=== PATIENT | male | born 1950 | race Caucasian/White ===

== ENCOUNTER → 2017-01-10 | Outpatient (CLI) | payer OTHER ==
[~2017-01-10] MED LIST: AMLO2.5T PO; BACLOF10P IT; CIPR-9 PO; CYMB60CA PO; DIAZ5 PO; DICL1GEL TOPICAL; LAMO200T PO; LEVE500 PO; PRED1SUS RIGHT EYE; TAMS5CAP PO
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
== END ==
LOC: HRAD 14:05
PROVIDERS: ATTEND Urology
DX: N31.9 Neuromuscular dysfunction of bladder, unspecified (principal)
CPT/HCPCS: 76775

== ENCOUNTER 2017-09-17 10:44 | Observation (INO) | payer OTHER ==
[~2017-09-17] VITALS: Ht 195.6 cm; Wt 125.0 kg
[~2017-09-17 10:44] MED LIST changes: -CIPR-9 PO; +COLA100C PO; +CRANCAP2 PO; -DICL1GEL TOPICAL; +MIRA3350 PO; +MULT-65 PO; -PRED1SUS RIGHT EYE; +RANI150T PO; +VOLT1GEL4 TOPICAL
[2017-09-17] MEDS ORDERED: COLA100C PO (11:36)
[2017-09-17] MEDS ORDERED: AMLO2.5T PO (11:36)
[2017-09-17] MEDS ORDERED: CHLORHEXIDINE GLUCONATE 2 % 1 PACK (2 CLOTHS) TOPICAL PRN (12:00)
[2017-09-17] MEDS ORDERED: LACTATED RINGER'S 1000 ML IV PRN (12:00)
[2017-09-17] MEDS ORDERED: METOPROLOL TARTRATE 25 MG TAB PO PRN (12:00)
[2017-09-17] MEDS ORDERED: ePHEDrine/NS 25 MG/5 ML SYR IV ONE (12:00)
[2017-09-17] MEDS ORDERED: ONDANSETRON HCL 4 MG/2 ML VIAL IV PUSH ONE (12:00)
[2017-09-17] MEDS ORDERED: POVIDONE IODINE 5% (ANTISEPSIS KIT) 4 APPLICATIONS EACH NARE PRN (12:00)
[2017-09-17] MEDS ORDERED: ROCURONIUM INJ 50 MG/5 ML VIAL IV ONE (12:00)
[2017-09-17] MEDS ORDERED: INSULIN HUMAN REGULAR 1,000 UNITS/10 ML VIAL SQ PRN (12:00)
[2017-09-17] MEDS ORDERED: SODIUM CHLORID 0.9% 500 ML IV PRN (12:00)
[2017-09-17] MEDS ORDERED: AMPICILLIN/SULBAC 3 GM/NS 100 ML IV SCH ×2 (12:00)
[2017-09-17] MEDS ORDERED: PROPOFOL 200 MG/20 ML AMP IV ONE (12:00)
[2017-09-17] MEDS ORDERED: LIDOCAINE HCL 1% PF 5 ML AMPULE OTHER ONE (12:00)
--- NOTE | 2017-09-17 13:39 | EKG ---
Date Performed: 09/17/2017 Time Performed: 11:28:16 PTAGE: 67 years EKG: Sinus rhythm DOCTOR: Arpan Kaye Interpretating Date/Time 09/17/2017 13:37:58
[2017-09-17] MEDS ORDERED: OXYMETAZOLINE HCL 0.05% 15 ML NASAL SPRAY ONE (14:07)
[2017-09-17] MEDS ORDERED: BACITRACIN TOP OINT 15 GM TUBE ONE (14:26)
[2017-09-17] MEDS ORDERED: SUGAMMADEX SODIUM 200 MG/2 ML VIAL IV PUSH ONE ×2 (15:01)
[2017-09-17] MEDS ORDERED: *MEPERIDINE 25 MG INJ VIAL PERIprocedural Use ONLY ONE (16:24)
[2017-09-17] MEDS ORDERED: POLYETHYLENE GLYCOL 17 GM PKG PO PRN (17:15)
[2017-09-17] MEDS ORDERED: PILL SPLITTER OTHER PRN (17:15)
[2017-09-17] MEDS ORDERED: [UNRECOGNIZED DRUG - OTHER] TOPICAL PRN (17:15)
[2017-09-17] MEDS ORDERED: DIAZEPAM 5 MG TAB PO PRN (17:15)
[2017-09-17] MEDS ORDERED: BACLOFEN IT SCH (17:15)
[2017-09-17 17:45] VITALS: BP 128/74; PULSE 66; RESP 18; TEMP 96.5; O2SAT 97
[2017-09-17] MEDS ORDERED: ACETAMINOPHEN 325 MG TAB PO PRN (18:45)
[2017-09-17] MEDS ORDERED: ONDANSETRON HCL 4 MG/2 ML VIAL IV PUSH PRN (18:45)
[2017-09-17 20:05] VITALS: BP 137/70; PULSE 67; RESP 18; TEMP 96; O2SAT 96
[2017-09-17] MEDS ORDERED: DO NOT ADM ANY ANTICOAGULANT DRUGS PRN (20:15)
[2017-09-17] MEDS ORDERED: TAMSULOSIN HCL 0.4 MG CAP PO SCH (21:00)
[2017-09-17] MEDS ORDERED: DOCUSATE SODIUM 100 MG CAP PO SCH (21:00)
[2017-09-17] MEDS ORDERED: amLODIPine BESYLATE 5 MG TAB PO SCH (21:00)
[2017-09-17] MEDS: levETIRAcetam 500 MG TAB PO SCH (22:09)
[2017-09-17] MEDS: lamoTRIgine 100 MG TAB PO SCH (22:14)
[2017-09-17] MEDS: AMPICILLIN/SULBAC 1500 MG/NS 100 ML IV SCH ×2 (23:07)
[2017-09-17] MEDS: LACTATED RINGER'S 1000 ML INJ 1,000 ML IV SCH (23:10)
[2017-09-18 00:06] VITALS: BP 122/65; PULSE 75; RESP 18; TEMP 96.6; O2SAT 95
[2017-09-18 04:04] VITALS: BP 107/53; PULSE 88; RESP 18; TEMP 97.5; O2SAT 95
[2017-09-18] MEDS: AMPICILLIN/SULBAC 1500 MG/NS 100 ML IV SCH ×2 (06:47)
[2017-09-18 08:00] VITALS: BP 92/56; PULSE 72; RESP 18; TEMP 96.6; O2SAT 92
[2017-09-18] MEDS ORDERED: MULTIVITAMIN TAB PO SCH (09:00)
[2017-09-18] MEDS ORDERED: FAMOTIDINE 20 MG TAB PO SCH (09:00)
[2017-09-18] MEDS ORDERED: DOCUSATE SODIUM 100 MG CAP PO SCH (09:00)
[2017-09-18] MEDS ORDERED: amLODIPine BESYLATE 5 MG TAB PO SCH (09:00)
[2017-09-18] MEDS ORDERED: DULoxetine HCl DR 60 MG CAP PO SCH (09:00)
[2017-09-18] MEDS: lamoTRIgine 100 MG TAB PO SCH (09:23)
[2017-09-18] MEDS: levETIRAcetam 500 MG TAB PO SCH (09:23)
[2017-09-18] MEDS ORDERED: INFLUENZA VIRUS VACCINE (QUADRIVALENT) 0.5 ML SYR IM ONE (10:00)
[2017-09-18] MEDS ORDERED: PNEUMOCOCCAL POLYVALENT INJ 25 MCG/0.5 ML SYR IM ONE (10:00)
[2017-09-18] MEDS: LACTATED RINGER'S 1000 ML INJ 1,000 ML IV SCH ×2 (10:02→10:03)
--- NOTE | 2017-09-29 12:57 | MP ---
cc: INDIRA CROSS M.D. DATE OF SURGERY: 09/17/[address] Indira Cross. PREOPERATIVE DIAGNOSIS 1. Chronic pansinusitis. 2. Nasal airway obstruction. 3. Chronic rhinitis. POSTOPERATIVE DIAGNOSIS 1. Chronic pansinusitis. 2. Nasal airway obstruction. 3. Chronic rhinitis. OPERATION PERFORMED 1. Bilateral endoscopic maxillary antrostomy with removal of maxillary sinus tissue. 2. Bilateral endoscopic exploration of frontal sinus duct with balloon sinuplasty. 3. Bilateral endoscopic sphenoidotomy with removal of sphenoid sinus contents. INDICATIONS The indications are documented in the history and physical. DESCRIPTION OF OPERATION The patient was taken to OR #7 and placed in the supine position. Following induction of general anesthesia and intubation the nose was packed bilaterally with cotton pledgets saturated in 0.05% oxymetazoline. These remained in place for a period of five minutes. While they were in place a one-inch throat pack was placed into the oropharynx. The packing was removed and the nose examined using a 0-degree fiberoptic scope and was injected in the middle turbinates and uncinate processes with a total of 80 mL of 1% Xylocaine with epinephrine 1:100,000. The left side was addressed first. Using a curved suction the sphenoid sinus ostium was probed and then enlarged using through cutting Blakesley forceps. When this was completed the Acclarent balloon catheter was advanced into the sinus cavity and the cavity was irrigated with 200 mL of saline. This irrigated yellow purulent material from the sinus cavity which was evacuated from the nasal vault. The right maxillary sinus was then operated in the same fashion with the same results. Next, the frontal sinuses were addressed beginning with the left side. The Acclarent balloon catheter was advanced into the frontal duct and the balloon was then advanced over the guidewire and inflated to a pressure of 12 atmospheres at the superior level, at the midpoint of the duct and inferiorly at the junction with the ethmoid. The frontal sinus was then also irrigated with 100 mL of saline until it returned clear. The right frontal sinus was then treated in the same fashion. Lastly the sphenoid sinuses were addressed. The ostium was probed using a #10 suction. When it was identified the balloon guidewire was then advanced into the sinus and the sinus was irrigated with 200 mL of saline. This was completed bilaterally. Irrigation continued until the fluid returned clear. The balloon and the throat pack were then removed and the procedure was terminated. The patient was reversed from anesthesia and taken to Recovery in good condition. There were no complications. Blood loss was 100 mL. MD HEATHER Marrero/MAYRA /12:15 PM /12:47 PM
== END 2017-09-18 13:23 | disposition home or self-care (01) ==
LOC: HSDC 10:44 → N06B 17:54
PROVIDERS: ADMIT Otolaryngology; ATTEND Otolaryngology
DX: J32.4 Chronic pansinusitis (principal); J32.8 Other chronic sinusitis; J31.0 Chronic rhinitis; J34.89 Other specified disorders of nose and nasal sinuses; R09.82 Postnasal drip; R09.81 Nasal congestion; R05 Cough; Z23 Encounter for immunization; Z01.810 Encounter for preprocedural cardiovascular examination
CPT/HCPCS: 00160; 31267; 31276; 31288; 90732; 93005; G0008; G0009; G0378; J0295; J2175; J2405; J3010; J7120; Q2038; 90471; 90472; 90686